=== PATIENT | male | born 1935 | race Caucasian/White ===

== ENCOUNTER 2022-05-10 11:22 | Emergency (ER) | payer OTHER, BC ==
[2022-05-10 12:16] LABS: HEMATOCRIT 36.1 % (35.4-49); HEMOGLOBIN 12.6 G/dL (11.7-16.9); MCH 30.6 pg (25.7-33.7); MCHC 34.8 g/dl (32.0-35.9); MEAN PLT VOLUME 8.7 fl (7.5-11.1); RDW 16.2 % (11.9-15.9); WHITE BLOOD COUNT 5.1 10^3/uL (4.0-10.8)
[2022-05-10 12:22] LABS: ALBUMIN 2.9 g/dl (3.4-5.0); BILIRUBIN,TOTAL 1.1 mg/dl (0.2-1); CREATININE 2.2 mg/dl (0.55-1.3); TOT PROT 6.3 g/dl (6.4-8.2)
[2022-05-10 13:36] VITALS: BP 130/63; PULSE 81; RESP 18; TEMP 98.7; BMI 27.3
== END 2022-05-10 13:46 | disposition home or self-care (01) ==
LOC: FER 11:22
DX: S09.90XA Unspecified injury of head, initial encounter (principal); R55 Syncope and collapse; W01.0XXA Fall on same level from slipping, tripping and stumbling without subsequent striking against object, initial encounter; Y92.002 Bathroom of unspecified non-institutional (private) residence as the place of occurrence of the external cause
CPT/HCPCS: 36415; 70450-TC; 80053; 84484; 85027; 93005; 99285-25

== ENCOUNTER 2023-01-21 12:39 | Inpatient (IN) | payer OTHER, BC ==
[2023-01-21] MEDS ORDERED: DIPHTH,PERTUSS(ACELL),TET 0.5 ML DISP.SYRIN IM ONE ×2 (13:19→14:04)
[2023-01-21 15:03] LABS: HEMATOCRIT 24.2 % (35.4-49); HEMOGLOBIN 7.5 G/dL (11.7-16.9); MCH 26.1 pg (25.7-33.7); MCHC 31.1 g/dl (32.0-35.9); MEAN CELL VOLUME 84.1 fl (80-96); MEAN PLT VOLUME 9.2 fl (7.5-11.1); PLATELET COUNT 337.2 10^3/uL (134-434); RBC 2.88 10^6/uL (4.00-5.60); RDW 16.4 % (11.9-15.9); WHITE BLOOD COUNT 13.6 10^3/uL (4.0-10.8)
[2023-01-21 15:10] LABS: ALBUMIN 2.8 g/dl (3.4-5.0); BLOOD UREA NITROGEN 39.7 mg/dl (7-18); CALCIUM 8.4 mg/dl (8.5-10.1); CREATININE 2.3 mg/dl (0.6-1.3); POTASSIUM 4.3 mmol/L (3.5-5.1); SGOT/AST 11.6 U/L (15-37); SGPT/ALT 5.8 U/L (7-52); TOT PROT 6.3 g/dl (6.4-8.2)
[2023-01-21 16:35] LABS: BILIRUBIN,TOTAL 0.6 mg/dL (0.2-1)
[2023-01-21 16:52] LABS: PLATELET ESTIMATE ADEQUATE
[2023-01-21 19:00] VITALS: BMI 23.7
[2023-01-21] MEDS ORDERED: DOCUSATE SODIUM 100 MG CAPSULE (FP) PO PRN (20:44)
[2023-01-21] MEDS ORDERED: ACETAMINOPHEN 1000 MG/100 ML BAG IVPB PRN (20:47)
[2023-01-22 06:35] VITALS: RESP 18
[2023-01-22 08:39] LABS: INR 1.54 (0.83-1.09); PROTHROMBIN TIME (PATIENT) 17.8 SEC (9.7-13.0)
[2023-01-22 08:42] LABS: ACTIVATED PTT 30.8 SECONDS (25.2-36.5)
[2023-01-22 09:30] LABS: BLOOD UREA NITROGEN 40.2 mg/dl (7-18); CALCIUM 8.5 mg/dl (8.5-10.1); CREATININE 2.1 mg/dl (0.6-1.3); MAGNESIUM 2.1 mg/dL (1.8-2.4); PHOSPHOROUS 4.11 (2.5-4.9); POTASSIUM 4.2 mmol/L (3.5-5.1)
[2023-01-22] MEDS ORDERED: metoPROLOL SUCCINATE 25 MG TAB.SR.24H (FP) PO SCH (10:00)
[2023-01-22] MEDS ORDERED: PATIENT'S OWN MEDICATION (NON-FORMULARY) (Cabozantinib S-Malate [Cabometyx] 40 MG Tablet) PO SCH (10:00)
[2023-01-22 11:09] LABS: HEMATOCRIT 22.4 % (35.4-49); HEMOGLOBIN 7.2 GM/dL (11.7-16.9); MCH 25.8 pg (25.7-33.7); MCHC 32.1 g/dl (32.0-35.9); MEAN CELL VOLUME 80.3 fl (80-96); MEAN PLT VOLUME 8.7 fl (7.5-11.1); PLATELET COUNT 329 10^3/uL (134-434); RBC 2.79 M/mm3 (4.00-5.60); RDW 16.2 % (11.9-15.9); WHITE BLOOD COUNT 8.5 K/mm3 (4.0-10.0)
[2023-01-22 14:51] VITALS: BP 131/65; PULSE 73; TEMP 98.5
[2023-01-22] MEDS ORDERED: ACETAMINOPHEN 325 MG TABLET (FP) PO PRN (20:44)
== END 2023-01-22 15:26 | disposition home or self-care (01) | DRG 948 ==
LOC: FER 12:39 → FM/S 15:06
PROVIDERS: ADMIT Internal Medicine; ATTEND Internal Medicine
DX: R53.1 Weakness (principal); C64.9 Malignant neoplasm of unspecified kidney, except renal pelvis; E78.5 Hyperlipidemia, unspecified; N18.9 Chronic kidney disease, unspecified; R13.10 Dysphagia, unspecified; S41.111A Laceration without foreign body of right upper arm, initial encounter; W18.30XA Fall on same level, unspecified, initial encounter; Y92.091 Bathroom in other non-institutional residence as the place of occurrence of the external cause; Z95.2 Presence of prosthetic heart valve
CPT/HCPCS: 36415; 70450-TC; 71250-TC; 72125-TC; 73090-TC-RT-FY; 73590-TC-LT-FY; 73590-TC-RT-FY; 74176-TC; 80048; 80053; 81003; 81015; 82728; 83540; 83550; 83735; 84100; 85025; 85027; 85045; 85610; 85730; 86850; 86900; 86901; 87086; 90715; 93005; 97116-GP; 97161-GP; 99285-25